=== PATIENT | female | born 1985 | race Caucasian/White ===

== ENCOUNTER → 2017-01-26 | Outpatient (REF) | LOC: WSOH 11:22 | DX: Z02.89 Encounter for other administrative examinations (principal) ==

== ENCOUNTER → 2017-03-10 | Outpatient (REF) | LOC: WSOH 17:30 | DX: Z02.89 Encounter for other administrative examinations (principal) ==

== ENCOUNTER → 2017-04-13 | Outpatient (REF) | LOC: WSOH 12:52 | DX: Z02.89 Encounter for other administrative examinations (principal) ==

== ENCOUNTER 2017-10-12 21:10 | Emergency (ER) | payer BC ==
[~2017-10-12] VITALS: Ht 167.6 cm; Wt 61.4 kg
[2017-10-12 21:12] VITALS: TEMP 98
[2017-10-12 21:36] LABS: INR 0.9 (0.8-3.0); PROTHROMBIN TIME 10.6 SECONDS (9.7-12.8)
[2017-10-12] MEDS ORDERED: SYNTHROID0.075 MG/T PO (21:38)
[2017-10-12 21:39] LABS: HEMATOCRIT 40.1 % (37.0-47.0); MEAN CELL VOLUME 85 fl (80.0-100.0); MEAN CORPUSCULAR HEMOGLOBIN 30 pg (27.0-31.0); MEAN CORPUSCULAR HGB CONC 35 g/dl (33.0-37.0); MEAN PLATELET VOLUME 9.6 fl (7.4-10.4); PLATELET COUNT 321 K/mm3 (130-400); REDCELL DISTRIBUTION WIDTH-CV 12.2 % (11.5-14.5)
[2017-10-12 21:46] LABS: ALANINE AMINOTRANSFERASE 34 U/L (9-52); ALBUMIN 4.4 gm/dL (3.5-5.0); ALKALINE PHOSPHATASE 80 U/L (50-136); ANION GAP 17 mmol/L (7-16); AST,SGOT 26 U/L (15-37); BILIRUBIN,TOTAL 0.2 mg/dL (0.0-1.0); BLOOD UREA NITROGEN 14 mg/dL (7-17); CALCIUM 9.4 mg/dL (8.4-10.2); CARBON DIOXIDE 21 mmol/L (22-30); CHLORIDE 104 mmol/L (98-107); CREATININE, serum 0.74 mg/dL (0.52-1.25); GLUCOSE 101 mg/dL (74-106); POTASSIUM 3.2 mmol/L (3.4-5.0); SODIUM 142 mmol/L (137-145); TOTAL PROTEIN 8.2 gm/dL (6.4-8.2)
[2017-10-12 21:59] LABS: TROPONIN-I < 0.012 ng/mL (0.000-0.034)
[2017-10-12 22:31] LABS: BAND 3 % (0-10); METAMYELOCYTE 3 % (0-0); MYELOCYTE 1 % (0-0); NEUTROPHILS 29 % (42.0-75.2); PLATELET ESTIMATE NORMAL (NORMAL)
[2017-10-12] MEDS ORDERED: TOPROL XL 25MG25 MG PO (22:40)
[2017-10-12 23:07] LABS: LYMPHOCYTE 61 % (20.0-51.0)
[2017-10-12 23:15] VITALS: BP 113/87; PULSE 103
[2017-10-13 08:59] LABS: PATHOLOGY DIFF REVIEW OK
== END 2017-10-12 23:31 | disposition home or self-care (01) ==
LOC: COL.ER 21:10
PROVIDERS: Emergency Medicine
DX: I47.1 Supraventricular tachycardia (principal); R00.2 Palpitations; E03.9 Hypothyroidism, unspecified; Z87.42 Personal history of other diseases of the female genital tract; Z98.890 Other specified postprocedural states
CPT/HCPCS: J0153; J7030; Q9967

== ENCOUNTER 2018-09-27 18:56 | Inpatient (IN) | payer OTHER ==
[~2018-09-27] VITALS: Ht 165.1 cm; Wt 82.3 kg
[2018-09-27] VITALS (11 sets, daily range): BP systolic 94–146; BP diastolic 51–81; PULSE 96–120; TEMP 98.3–98.6
--- NOTE | 2018-09-27 18:55 | NUR ---
1854- Pt arrived on unit escorted by family and with complaints of contractions all day increasing in frequency and intensity this evening. Pt denies any leaking of fluid or vaginal bleeding and reports normal movement. EFM and toco monitors placed. Vital signs WNL. SVE by this RN . 1929- Spoke with Dr. Dorsey for an update on pt's arrival, SVE, ctx pattern and FHR tracing reviewed. Orders for labor assessment received. Plan of care reviewed with pt and family at the bedside. 2019- SVE by this RN 2029- Spoke with Dr. Dorsey for an update on pt's status with SVE, ctx pattern and FHR tracing reviewed. Orders for labor admission received. Plan of care reviewed with pt and family at the bedside. 2109- IV started, LR and Pen G infusing per order. See EMAR for details. Consents signed.
[~2018-09-27 18:56] MED LIST: SYNTHROID0.075 MG/T PO; TOPROL XL 25MG25 MG PO
[2018-09-27] MEDS ORDERED: ZANTAC 7575 MG PO (19:09)
[2018-09-27] MEDS ORDERED: PRENATAL (19:09)
[2018-09-27] MEDS ORDERED: MACROBID 1100 MG/CAP PO (19:09)
[2018-09-27 21:28] LABS: BASO % 0.2 % (0.0-2.0); EOS % 0.1 % (0-4.0); GRAN # 14.4 (1.4-6.5); GRAN % 83.6 % (42.2-75.2); HEMOGLOBIN 10.6 g/dl (12.5-16.0); LYMPH # 1.6 (1.2-3.4); LYMPH % 9.4 % (20.0-51.0); MEAN CELL VOLUME 85 fl (80.0-100.0); MEAN CORPUSCULAR HEMOGLOBIN 28 pg (27.0-31.0); MEAN CORPUSCULAR HGB CONC 33 g/dl (33.0-37.0); MEAN PLATELET VOLUME 9.7 fl (7.4-10.4); MONO # 0.9 (0.1-0.6); MONO % 5.5 % (1.7-9.3); PLATELET COUNT 345 K/mm3 (130-400); RED BLOOD COUNT 3.75 M/mm3 (4.10-5.30); REDCELL DISTRIBUTION WIDTH-CV 13.7 % (11.5-14.5)
[2018-09-27 21:30] LABS: HEMATOCRIT 31.9 % (37.0-47.0)
--- NOTE | 2018-09-27 22:42 | NUR ---
2214 - Pt called out requesting epidural. Rk Banuelos CRNA notified. Will come to bedside. 2229 - ROGER Dhillon at bedside. Procedure, risks, and benefits reviewed with patient, pt verbalized understanding. 2231 - Pt repositioned to sitting on edge of bed. Time out performed. 2241 - Test dose by ROGER Dhillon, pt denies any adverse reactions. 2248 - Pt repositioned to wedge left. Safety precautions reviewed. Family members x 2 supportive at bedside.
[2018-09-28] VITALS (32 sets, daily range): BP systolic 98–136; BP diastolic 51–80; PULSE 68–157; TEMP 98.3–100.5
--- NOTE | 2018-09-28 02:23 | NUR ---
Dr. Dorsey at bedside to perform AROM and SVE. AROM of large amount of clear fluid. SVE 10/100/0. Pt repositioned to Left side with peanut ball per Dr. Dorsey.
--- NOTE | 2018-09-28 02:40 | NUR ---
0240 - Pt educated on pushing techniques, pt verbalized understanding. Pt repositioned into lithotomy position. 0245 - Initial push at this time.
--- NOTE | 2018-09-28 03:30 | NUR ---
Pt pushing well with contractions. Recurrent variable decelerations noted with pushing. FHR returns to baseline spontaneously after contraction.
--- NOTE | 2018-09-28 04:00 | NUR ---
Pt pushing well with contractions. Variable and late decelerations noted after each contraction down to 100 bpm with spontaneous return to baseline. RN continuously at bedside with pushing.
--- NOTE | 2018-09-28 04:30 | NUR ---
Pt continues to push well with contractions. This RN remains at bedside during pushing. Variable decelerations down to 110 bpm noted with pushes with spontaneous return to baseline.
--- NOTE | 2018-09-28 04:40 | NUR ---
Dr. Dorsey at bedside to push with patient and evaluate progress. Straight cath at this time with 75 mL pamela urine returned.
--- NOTE | 2018-09-28 05:00 | NUR ---
Pt continues to push well with contractions. Variable and late decelerations down to 110 bpm after pushes with spontaneous return to baseline. Dr. Dorsey on unit reviewing strip.
--- NOTE | 2018-09-28 05:13 | NUR ---
0505 - Dr. Dorsey pushing with patient. Pt pushing well and has small crown with pushes. Nursery notified to come to room for delivery. 0507 - Dr. Dorsey gowned and gloved at perineum. 0512 - Pt pushed to delivery head. 0513 - Spontaneous vaginal delivery of rest of body. Infant placed on mothers abdomen, care of assumed to ANTONINA Hutchins. Cord clamped and cut by Dr. Dorsey. Cord blood obtained. Pitocin off. 0520 - 2nd degree perineal laceration and right labial laceration repaired before delivery of placenta. 0522 - Spontaneous delivery of intact placenta. Pitocin restarted at 333 mL/hr per protocol. Fundal massage started by this RN. Fundus firm and down 3 from umbilicus, small amount of bleeding with massage. Epidural pump turned off. Straight cath performed by Dr. Dorsey. 0540 - Pericare provided. New chux pad beneath patient. Ice pack applied to perineum. Pt repositioned in bed to semi fowlers. recovery started.
--- NOTE | 2018-09-28 06:30 | NUR ---
Assumed care of patient. Rests in bed, alert, holding baby. Family at bedside. Denies any needs at this time.
--- NOTE | 2018-09-28 08:00 | NUR ---
Ambulates to the bathroom, tolerates well. Voids moderate amount of clear yellow urine. Yuko-care done, new gown on. Ambulates to room 208, oriented to room. Baby to nursery for bath.
--- NOTE | 2018-09-28 10:00 | NUR ---
Rests in bed, alert. Denies any needs at this time. Family at bedside.
--- NOTE | 2018-09-28 14:00 | NUR ---
Rests in bed, alert. network pricing consultant visits with patient.
--- NOTE | 2018-09-28 15:00 | NUR ---
Rests in bed, alert. Ibuprofen 800 mg given per request and as ordered.
[2018-09-29 07:20] VITALS: BP 123/72; PULSE 102; TEMP 97.7
[2018-09-29 08:30] VITALS: PULSE 88
[2018-09-29] MEDS ORDERED: IBU800 M1 PO (09:09)
--- NOTE | 2018-09-29 10:11 | NUR ---
Initial visit; Mom and Grandma thanked Sr. Payroll Manager for offering congratulations and God's blessings for the of their baby boy. Sr. Payroll Manager thanked Mom for choosing [facility].
[2018-09-29 15:36] VITALS: BP 112/71; PULSE 72; TEMP 97.9
[2018-09-29 21:00] VITALS: BP 111/75; PULSE 98; TEMP 98.1
[2018-09-30 08:15] VITALS: BP 123/63; PULSE 97; TEMP 97.5
== END 2018-09-30 11:35 | disposition home or self-care (01) | DRG 806 ==
LOC: LDRO 18:56 → LDR 20:37 → OB 20:37
PROVIDERS: ADMIT Student in an Organized Health Care Education/Training Program
PROC: 10E0XZZ Delivery of Products of Conception, External Approach (ICD-10-PCS; principal; 2018-09-28)
PROC: 0KQM0ZZ Repair Perineum Muscle, Open Approach (ICD-10-PCS; 2018-09-28)
PROC: 0UQG7ZZ Repair Vagina, Via Natural or Artificial Opening (ICD-10-PCS; 2018-09-28)
DX: O70.1 Second degree perineal laceration during delivery (principal); O71.4 Obstetric high vaginal laceration alone; Z37.0 Single live birth; I47.1 Supraventricular tachycardia; Z3A.38 38 weeks gestation of pregnancy; O99.824 Streptococcus B carrier state complicating childbirth; O99.284 Endocrine, nutritional and metabolic diseases complicating childbirth; E03.9 Hypothyroidism, unspecified; O76 Abnormality in fetal heart rate and rhythm complicating labor and delivery; O75.4 Other complications of obstetric surgery and procedures
CPT/HCPCS: J2540; J2590; J7120

== ENCOUNTER → 2018-10-18 | Outpatient (CLI) | payer OTHER ==
[~2018-10-18] MED LIST changes: +IBU800 M1 PO; +MACROBID 1100 MG/CAP PO; +PRENATAL; +ZANTAC 7575 MG PO
--- NOTE | 2018-10-18 11:20 | NUR ---
Lucila Chandra into clinic with 3 week old Cristino Chandra ( [birth year]) for evaluation. Lucila reports Cristino to have diapers WNL and eats 8 times per day; however, over 48+ hours Lucila has been pumping and feeding due to difficulty latching. Lucila states Cristino gets fussy at this breast and will not consistantly stay latched. Lucila states she is pumping 8 times per day and is able to get approx 90 mls with each pumping session. Cristino's weight was noted at 7 # 11.1 oz ( 3490 g) and today's prefeed weight was 8 # 0.7 oz (3650 g). LC assisted Lucila and Cristino with positioning and a wider gape with latching. Cristino took 50 ml from the right breast after nursing approx 15-20 min, then only 2 ml from the left breast before he became sleepy and uninterested. LC noted Lucila to be slightly engorged which may be contributing to difficulty with latching. LC suggested expressing small amount of milk prior to latching to soften breast tissue to see if this helps Cristino obtain a better latch. Plan of care: Continue to feed ad jesus, continue to pump and feed if breast feeding session is not successful. Try expressing milk prefeed and/or using breast shield if having issues getting Cristino to latch or stay latched consistantly. Anticipate follow up in clinic.
== END ==
LOC: LAC 10:12
DX: Z39.1 Encounter for care and examination of lactating mother (principal); Z71.89 Other specified counseling

== ENCOUNTER 2023-07-10 09:33 | Inpatient (IN) | payer BC ==
[~2023-07-10] VITALS: Ht 165.1 cm; Wt 84.5 kg
[2023-07-10] VITALS (15 sets, daily range): BP systolic 93–145; BP diastolic 52–78; PULSE 82–103; TEMP 97.7
--- NOTE | 2023-07-10 09:50 | NUR ---
Pt arrived on unit ambulatory and with concerns for contractions starting this morning around 0600 and worsening in intensity and frequency around 0730. Pt denies any leaking of fluid or vaginal bleeding and reports normal movement. EFM and toco monitors started. Vital signs WNL. SVE by this RN 3-/-2. Dr. Orellana on the unit. FHR tracing and records reviewed. Labor orders received.
[2023-07-10] MEDS ORDERED: ZOLOFT 25MG25 MG PO (10:14)
[2023-07-10] MEDS ORDERED: SYNTHROID0.175 MG PO (10:14)
[2023-07-10] MEDS ORDERED: ZOLOFT 50MG50 MG PO (10:14)
[2023-07-10] MEDS ORDERED: PROTONIX20 MG PO (10:15)
[2023-07-10 10:53] LABS: BASO # 0.1 K/mm3 (0.0-0.2); BASO % 0.6 % (0.0-2.0); EOS # 0.1 K/mm3 (0.0-0.7); EOS % 0.4 % (0.0-4.0); GRAN # 9.1 K/mm3 (1.4-6.5); GRAN % 74.8 % (42.2-75.2); HEMOGLOBIN 11.4 g/dl (12.5-16.0); LYMPH # 2.1 K/mm3 (1.2-3.4); LYMPH % 17.4 % (20.0-51.0); MEAN CELL VOLUME 91 fl (80.0-100.0); MEAN CORPUSCULAR HEMOGLOBIN 31 pg (27-31); MEAN CORPUSCULAR HGB CONC 33 g/dl (33.0-37.0); MEAN PLATELET VOLUME 9.5 fl (7.4-10.4); MONO # 0.7 K/mm3 (0.1-0.6); MONO % 5.4 % (1.7-9.3); PLATELET COUNT 327 K/mm3 (130-400); RED BLOOD COUNT 3.74 M/mm3 (4.10-5.30); REDCELL DISTRIBUTION WIDTH-CV 13.7 % (11.5-14.5)
[2023-07-10 10:57] LABS: HEMATOCRIT 34.1 % (37.0-47.0)
--- NOTE | 2023-07-10 15:35 | NUR ---
PT TRANSPORTED VIA [facility] TO BATHROOM. CHANGED INTO CLEAN GOWN. PERICARE DONE. CLEAN PAD AND UNDERWEAR PLACED. PT AMBULATES TO WHEELCHAIR. THIS RN TRANSPORTS PT VIA WHEELCHAIR TO NURSERY.
--- NOTE | 2023-07-10 17:40 | NUR ---
THIS RN GOES OVER DISCHARGE INSTRUCTIONS WITH PT. PT VERBALIZES AND WRITES UNDERSTANDING.
== END 2023-07-10 17:45 | disposition home or self-care (01) | DRG 807 ==
LOC: LDRO 09:33 → LDR 10:04
PROVIDERS: Obstetrics & Gynecology; ADMIT Student in an Organized Health Care Education/Training Program
PROC: 10E0XZZ Delivery of Products of Conception, External Approach (ICD-10-PCS; principal; 2023-07-10)
PROC: 0HQ9XZZ Repair Perineum Skin, External Approach (ICD-10-PCS; 2023-07-10)
DX: O99.284 Endocrine, nutritional and metabolic diseases complicating childbirth (principal); Z37.0 Single live birth; O99.344 Other mental disorders complicating childbirth; E03.9 Hypothyroidism, unspecified; F41.9 Anxiety disorder, unspecified; Z3A.37 37 weeks gestation of pregnancy; K21.9 Gastro-esophageal reflux disease without esophagitis; O99.62 Diseases of the digestive system complicating childbirth; O70.9 Perineal laceration during delivery, unspecified
CPT/HCPCS: J2590; J2795; J7120